=== PATIENT | female | born 1945 | race Caucasian/White ===

== ENCOUNTER 2019-09-16 14:20 | Outpatient (CLI) | payer MEDICARE, SELFPAY ==
--- NOTE | 2019-09-16 14:26 | MM_ITS ---
WS: [id number] DIAGNOSTIC BILATERAL DIGITAL MAMMOGRAM WITH CAD HISTORY: HX OF BREAST CA COMPARISON: 10/01/2018, 09/05/2018 TECHNIQUE: Bilateral craniocaudad, mediolateral oblique, and mediolateral views are submitted. Comput er aided detection utilized. Breast composition: There are scattered areas of fibroglandular density. Postsurgical changes in the anterior LEFT breast. The slight volume loss in the LEFT breast. There has been no change in the scar formation or in the previously biopsied area of fat necrosis. No new mass. MM/[id number] IMPRESSION: BI-RADS: 2-Benign FOLLOW UP: 1 Year Follow-up
== END 2019-09-16 14:21 | disposition home or self-care (01) ==
LOC: RADSHAW 14:26
PROVIDERS: PCP Family Medicine; Visit Provider Family Medicine
DX: Z85.3 Personal history of malignant neoplasm of breast (principal)
CPT/HCPCS: 77066

== ENCOUNTER 2020-03-02 13:41 | Outpatient (CLI) | payer MEDICARE, SELFPAY ==
--- NOTE | 2020-03-02 14:02 | XR_ITS ---
WS: [id number] RIGHT ANKLE: 3 VIEW(S) TECHNIQUE: AP, oblique(s) and lateral. HISTORY: R ANKLE PAIN X 3 MONTHS COMPARISON: None available. No acute fracture. Suspicious for remote healed fracture involving the distal fibula. Mild narrowing of the ankle joint. Hypertrophic bone formation projecting over the distal tibiofibula r articulation. Small calcaneal spur. No soft tissue abnormality. XR/XR ankle RT min 3V* [id number] IMPRESSION: 1. No acute fracture. 2. Suspect remote distal fibular fracture which is healed. 3. Mild degenerative changes at the ankle joint.
== END 2020-03-02 13:42 | disposition home or self-care (01) ==
PROVIDERS: PCP Family Medicine; Visit Provider Family Medicine
DX: M25.571 Pain in right ankle and joints of right foot (principal)
CPT/HCPCS: 73610

== ENCOUNTER → 2020-09-30 08:43 | Outpatient (BNVA) | payer MEDICARE, SELFPAY | PROVIDERS: PCP Family Medicine; Referring Provider Family Medicine; Visit Provider Podiatrist Foot & Ankle Surgery | DX: M25.571 Pain in right ankle and joints of right foot (principal) | CPT/HCPCS: 73610 ==

== ENCOUNTER 2020-10-02 10:55 | Outpatient (CLI) | payer MEDICARE, SELFPAY ==
--- NOTE | 2020-10-02 11:03 | MM_ITS ---
WS: [id number] SCREENING DIGITAL MAMMOGRAM WITH CAD HISTORY: HX OF BREAST CA COMPARISON: 09/16/2019, 10/01/2018 and 09/05/2018 Bilateral CC and MLO views submitted. Computer aided detection analyzed. Breast composition: There are scattered areas of fibroglandular density. Postsurgical changes in the upper outer quadrant of the LEFT breast. Volume loss with distortion are stable. Benign calcification s in each breast. MM/[id number] IMPRESSION: BI-RADS: 2-Benign FOLLOW UP: 1 Year Follow-up
== END 2020-10-02 10:56 | disposition home or self-care (01) ==
LOC: RADSHAW 11:00
PROVIDERS: PCP Family Medicine; Visit Provider Family Medicine
DX: Z85.3 Personal history of malignant neoplasm of breast (principal)
CPT/HCPCS: 77066

== ENCOUNTER 2020-10-09 12:33 | Outpatient (CLI) | payer MEDICARE, SELFPAY ==
--- NOTE | 2020-10-09 12:41 | XR_ITS ---
WS: [id number] Thoracic spine, 3 views, 10/09/2020 Clinical Data: THORACIC BACK PAIN Comparison: None. Findings: No compression fractures are seen. The disc heights are normal. There is moderate osteoarthritis and osteoporosis of the thoracic vertebral bodies. The paravertebral regions are normal. There are clips in the right upper quadrant from a cholecystectomy. There are cl ips anterior to the sternum from surgery. XR/XR thoracic spine 3V* [id number] Impression: Moderate osteoarthritis and osteoporosis of the thoracic vertebral bodies.
== END 2020-10-09 12:34 | disposition home or self-care (01) ==
PROVIDERS: PCP Family Medicine; Visit Provider Family Medicine
DX: M54.6 Pain in thoracic spine (principal); M81.0 Age-related osteoporosis without current pathological fracture; M47.814 Spondylosis without myelopathy or radiculopathy, thoracic region
CPT/HCPCS: 72072

== ENCOUNTER → 2020-10-15 09:57 | Outpatient (BNVA) | payer MEDICARE, SELFPAY | PROVIDERS: PCP Family Medicine; Visit Provider Podiatrist Foot & Ankle Surgery | DX: M25.571 Pain in right ankle and joints of right foot (principal) | CPT/HCPCS: 73610 ==

== ENCOUNTER 2020-11-02 15:35 | Outpatient (CLI) | payer MEDICARE, SELFPAY | END 2020-11-02 15:36 | disposition home or self-care (01) | LOC: SPT 15:36 | PROVIDERS: PCP Family Medicine; Visit Provider Podiatrist Foot & Ankle Surgery | DX: Z46.89 Encounter for fitting and adjustment of other specified devices (principal); M21.40 Flat foot [pes planus] (acquired), unspecified foot; M76.829 Posterior tibial tendinitis, unspecified leg; E11.9 Type 2 diabetes mellitus without complications | CPT/HCPCS: 97760; L3030 ==

== ENCOUNTER 2021-10-12 12:48 | Outpatient (CLI) | payer MEDICARE, SELFPAY ==
--- NOTE | 2021-10-12 13:10 | MM_ITS ---
WS: [id number] BILATERAL 3D TOMOSYNTHESIS DIGITAL SCREENING MAMMOGRAPHY WITH CAD CLINICAL INFORMATION: PERSONAL HX OF BREAST CA HISTORY: Screening mammogram. No current complaints. COMPARISON: October 02, 2020 TECHNIQUE: Bilateral CC and MLO views. FINDINGS: Scattered fibroglandular densities bilaterally. Postoperative changes upper outer LEFT breast. Treatm ent-related changes LEFT breast with skin thickening. Stable benign calcifications. Lucent centered c alcification RIGHT breast. No suspicious focal mass, asymmetry, calcifications, or architectural dist ortion. No evidence of malignancy. MM/[place] [id number] IMPRESSION: BI-RADS: 2-Benign FOLLOW UP: 1 Year Follow-up Recommend return to annual diagnostic mammography.
== END 2021-10-12 12:49 | disposition home or self-care (01) ==
PROVIDERS: PCP Family Medicine; Visit Provider Family Medicine
DX: Z85.3 Personal history of malignant neoplasm of breast (principal)
CPT/HCPCS: 77062